=== PATIENT | female | born 1950 | race Caucasian/White ===

== ENCOUNTER → 2022-04-27 | Outpatient (CLI) | payer MEDICARE | LOC: MC.RAD 02-09 10:45 | DX: Z12.31 Encounter for screening mammogram for malignant neoplasm of breast (principal) ==

== ENCOUNTER 2022-06-22 16:11 | Outpatient (RCR) | payer MEDICARE | END 2022-07-19 | disposition home or self-care (01) | LOC: COL.CR | DX: J44.9 Chronic obstructive pulmonary disease, unspecified (principal) ==